=== PATIENT | female | born 1995 | race Caucasian/White ===

== ENCOUNTER 2018-10-26 02:33 | Emergency (ER) | payer OTHER ==
[~2018-10-26] VITALS: Ht 157.5 cm; Wt 55.9 kg
[2018-10-26 02:34] VITALS: BP 127/76
[2018-10-26] MEDS ORDERED: PRENTAB45 PO (02:43)
--- NOTE | 2018-10-26 06:15 | REPVR ---
EXAM: US TRANSABD PLUS DETAILED EVAL FIRST GEST EXAM DATE/TIME: 10/26/2018 4:00 AM CLINICAL HISTORY: 23 years old, female; Pain; complicated by abdominal or pelvic pain; Lower; Second trimester; Gestational age or lmp: 19w 3 d; ; Additional info: Lower abdominal pain TECHNIQUE: Real-time transabdominal obstetrical ultrasound of the maternal pelvis and a first trimester with image documentation. COMPARISON: No relevant prior studies available. FINDINGS: Other findings: GESTATION: Gestation: Single live intrauterine in vertex presentation corresponding with 19 weeks 3 days with CASPER of 03/19/19, concordant with LMP. weight is 284 g, (10 ounces); 46%. Heart rate: heart rate is 157 beats per minute. Presentation: Vertex. Placenta: Placenta is posterior, grade 0. No evidence of abruption or previa. Amniotic fluid: Amniotic fluid appears normal. Head, face, and neck: Suboptimal visualization of the cerebellum/posterior fossa, 4 chamber heart and bilateral ventricular outlet. Heart: See above. Abdomen: Cranium, right axis, gave him, face profile, lungs, diaphragm, stomach, cord insertion, 3 vessel cord, kidneys, bladder, spine, bilateral extremities, are seen and appears to be normal. Umbilical cord and insertion: Normal. Spine: Unremarkable as visualized. Extremities: Unremarkable as visualized Gender: Not determined. BIOMETRY: Biparietal diameter: BPD is 4.6 cm. Head circumference: Head circumference is 16.8 cm. Femur length; 3.1 cm. Abdominal circumference: Abdominal circumference is 13.6 cm. MATERNAL: Uterus: Unremarkable. Cervix: Cervical length is 3.4 cm. IMPRESSION: Single live intrauterine in vertex presentation corresponding with 19 weeks 3 days with CASPER of 03/19/19, concordant with LMP. No acute finding. Electronically signed by: Eve Jacobs On 10/26/2018 06:15:15 AM
== END 2018-10-26 05:13 | disposition home or self-care (01) ==
LOC: M ED 02:33
DX: O26.892 Other specified pregnancy related conditions, second trimester (principal); R10.9 Unspecified abdominal pain; Z88.0 Allergy status to penicillin; Z3A.19 19 weeks gestation of pregnancy

== ENCOUNTER 2019-03-27 09:26 | Inpatient (IN) | payer OTHER ==
[~2019-03-27] VITALS: Ht 160 cm; Wt 71.9 kg
[2019-03-27] VITALS (25 sets, daily range): BP systolic 119–156; BP diastolic 66–88
[~2019-03-27 09:26] MED LIST: PRENTAB45 PO
[2019-03-27] MEDS ORDERED: LACTATED RINGER'S 1000 ML IV STA (10:46)
[2019-03-27] MEDS ORDERED: OXYTOCIN 30 UNITS IN 0.9% NaCl 500ML IV BAG (J2590) As Ordered ONE (11:04)
[2019-03-27 11:05] LABS: HEMATOCRIT 28.1 % (36.0-47.0); HEMOGLOBIN 9.2 g/dl (12.0-15.5); MEAN CORPUSCULAR HEMOGLOBIN 27.8 pg (27.0-33.0); MEAN CORPUSCULAR HGB CONC 32.7 g/dl (32.0-36.5); MEAN CORPUSCULAR VOLUME 84.9 fl (80.0-96.0); PLATELET COUNT, AUTOMATED 227 10^3/uL (150-450); RED BLOOD COUNT 3.31 10^6/uL (4.00-5.40); WHITE BLOOD COUNT 8.3 10^3/uL (4.0-10.0)
[2019-03-27] MEDS ORDERED: OXYTOCIN DRIP 30 UNITS in APPROPRIATE DILUENT 1 EA IV SCH (11:15)
[2019-03-27] MEDS: LR 1,000 ML IV SCH ×2 (11:18→18:46)
--- NOTE | 2019-03-27 11:19 | HPEPDOC ---
Obstetrical History & Physical General Date of Admission Mar 27, 2019 at 09:26 History of Present Illness Isabel is a 24yo with SIUP at 41w0d by lmp c/w 9wk u/s who presents today for scheduled IOL for LTG. She feels well. No LOF or vaginal bleeding. Feels good movement. Feels occasional ctx, nothing painful or progressive. Chief Complaint: Induction of labor Care Care: Good Care Dating Final EDC: March 20, 2019 Final EDC by: LMP, 1st trimester (US) Antepartum Course Diagnos(e)s Normal course Height (inches): 62 Pre- weight (lbs.): 125 Admission Weight (lbs.): 161 Change in Weight (lbs.): 36 Past Medical History Past Obstetrical History : Past Obstetrical History: Primgravida (1 early sab) SLIP DUMPER History: No pertinent history Past Medical History Medical History Benign PMhx Surgical History: [place] teeth Family History Significant Family History: No pertinent family hx Social History Marital Status: Family situation: Spouse/partner home Psychosocial History: No pertinent psych hx * Smoker: former Smoker (smoked 2-3 cig/day for 1 year prior to ) Alcohol: Denies Imunizations Tdap status: current Influenza Status: current Allergies Coded Allergies: Penicillins (Verified Adverse Reaction, Mild, N/V, 03/27/19) Medications Scheduled Vit No.129/Iron/Folic ( One Daily Tablet) 1 Tab Tab, 1 TAB PO DAILY Physical Examination Physical Examination GENERAL: Alert and oriented times three. ABDOMEN: Gravid and non-tender to touch. FETUS: Is vertex (VTX) by sterile vaginal examination (SVE) and TAUS EXTREMITIES: No edema Laboratory Data 24H LABS Laboratory Tests 2 03/27/19 09:36: Serology Scanned Report Hepatitis B Testing 03/27/19 10:10: CBC/BMP Pertinent Laboratoy Data Blood Type: O+ RBC Antibody Screen: Negative HIV: Negative Hepatitis B: Negative Hepatitis C: Unknown Rapid Plasma Reagin: Nonreactive Rubella: Immune Chlamydia/Gonorrhea: Negative Group B Streptococcus: Negative Quad Screen Test: Negative Cystic Fibrosis: Negative Glucose Tolerance Test: 100 Anatomy Ultrasound Ultrasound Date: Nov 07, 2018 Placenta Location: Posterior Normal Anatomy: Yes Placenta Previa: No Steroid Therapy Steroid Therapy: No Vaginal Examination Dilation: 1cm Effacement: 60% Station: -2 Cervical Consistency: Soft Cervical Position: Anterior Presentation: Cephalic presentation Assessment Heart Rate (FHR): 140 Variability: Moderate Accelerations: Positive Decelerations: None Tocometer Contractions: Yes Frequency: irregular Duration: greater than 60 seconds Strength: palpated as mild Assessment/Plan Assessment Isabel is a 24yo with SIUP at 41w0d by lmp c/w 9wk u/s who presents today for scheduled IOL for LTG. GBS negative. Cephalic by TAUS and SCE. SCE 60/-2, soft/anterior. Cat I FHRT with irregular ctx that patient does not feel. Vitals wnl, exam benign. Cervical webb bulb placed with 40cc NS without issue. PMhx uncomplicated, benign course. Former smoker- smoked 2-3cig/day for 1 year and quit w/discovery of Plan Admit and orient. [facility] Machine Tender and consent. Diet: regular for lunch then clear liquids Group B Streptococcus (GBS) negative Labs and intravenous (IV) per unit protocol. Counseled on webb bulb, Pitocin and induction of labor (IOL). Plan to start pitocin, titrate up to 6mu and continue until webb bulb falls out, then titrate up per protocol. Lactated Ringers (LR): Bolus 1000 mL, then at 125 mL/hr. Anticipate normal spontaneous delivery () Candidate for epidural in active labor if desired, IV stadol in latent labor if desired MD Adrian Sanabria Katrina D MD Mar 27, 2019 11:19
[2019-03-27] MEDS ORDERED: BUTORPHANOL 2 MG/ML INJ (J0595) IV ONE (11:30)
[2019-03-27] MEDS ORDERED: PROMETHAZINE INJ 25 MG/ML VIAL (J2550) IV ONE (11:30)
[2019-03-27] MEDS ORDERED: ONDANSETRON 4MG/2ML VIAL (J2405) IV ONE (16:30)
--- NOTE | 2019-03-27 20:15 | IPNPDOC ---
Text Note Date of Service The patient was seen on 03/27/19. NOTE I'm assuming care of Ms. Washington this evening and I introduced myself to her. S he's a 24 yo at 41+0 weeks undergoing and IOL for late term . Her has been uncomplicated, however her admission H/H was 07/19. Her induction process was started with a webb bulb and low dose pitocin. Her webb bulb came out a couple hours ago and she has continued on pitocin since. She just received 2gm of IV stadol for pain relief. Ms. Washington reports feeling much more comfortable after IV analgesia. She denies any other concerns. Cervix: 4/75/-2 per RN exam at ~1940. FHR: Cat I with moderate variability (though periods of minimal after IV stadol), +accels, no decels. Contractions Q2-6 minutes. Patient doing well. Continue with pitocin and titrate as needed into appropriate contraction pattern. Epidural when patient desires. Will recheck in ~6hours or sooner PRN. Will consider AROM at next exam if head well engaged. All patient questions answered. Mel Mandel DO VS,[place], I+O VS, [place], I+O Laboratory Tests 03/27/19 10:10 Red Blood Count 3.31 L, Mean Corpuscular Volume 84.9, Mean Corpuscular Hemoglobin 27.8, Mean Corpuscular Hemoglobin Concent 32.7, Red Cell Distribution Width 12.5 Vital Signs Date Time Temp Pulse Resp B/P (MAP) Pulse Ox O2 Delivery O2 Flow Rate FiO2 03/27/19 19:41 20 03/27/19 15:52 89 156/82 (106) 03/27/19 13:22 98.4 MEL MANDEL DO Mar 27, 2019 20:15
[2019-03-27] MEDS ORDERED: FENTANYL 2MCG/ML ROPIVACAINE 0.2% IN 0.9% NACL 100ML IVBAG As Ordered ONE (22:41)
[2019-03-28] VITALS (50 sets, daily range): BP systolic 108–148; BP diastolic 56–97
[2019-03-28] MEDS ORDERED: EPIDURAL/PCA KEYS XX PRN (00:45)
[2019-03-28] MEDS ORDERED: diphenhydrAMINE INJ 50MG/ML VIAL (J1200) IV PRN ×2 (00:45→15:36)
[2019-03-28] MEDS ORDERED: NALOXONE INJ 0.4 MG/1 ML VIAL (J2310) IV PRN ×3 (00:45→15:36)
[2019-03-28] MEDS ORDERED: FENTANYL/ROPIVACAINE/NACL BAG 100 ML EPIDURAL SCH (00:45)
[2019-03-28] MEDS ORDERED: EPIDURAL COMMENT XX SCH (00:45)
[2019-03-28] MEDS ORDERED: ONDANSETRON 4MG/2ML VIAL (J2405) IV PRN ×3 (00:45→16:45)
[2019-03-28] MEDS ORDERED: REFRIGERATOR IV KEYS XX PRN (00:45)
[2019-03-28] MEDS ORDERED: ePHEDrine SULFATE 25 MG/5 ML(5MG/ML) SYRINGE IV PRN (00:45)
--- NOTE | 2019-03-28 02:06 | IPNPDOC ---
Text Note Date of Service The patient was seen on 03/28/19. NOTE Ms. Washington had worsening pain and desired an epidural. She received it and is now comfortable. Cervix: /-2, unchanged from RN exam at ~1940. Head not engaged. FHR Cat I with moderate variability, +accels. No change from last exam, and cervix is not a laboring cervix. Contractions not in optimal pattern. Plan to continue with pitocin. When head engages and she transitions into actual labor will perform AROM. Safe to proceed. DO Ministerio [facility],[place], I+O VS, [place], I+O Laboratory Tests 03/27/19 10:10 Red Blood Count 3.31 L, Mean Corpuscular Volume 84.9, Mean Corpuscular Hemoglobin 27.8, Mean Corpuscular Hemoglobin Concent 32.7, Red Cell Distribution Width 12.5 Vital Signs Date Time Temp Pulse Resp B/P (MAP) Pulse Ox O2 Delivery O2 Flow Rate FiO2 03/28/19 00:34 86 131/75 (93) 03/28/19 00:08 99.2 03/27/19 19:52 20 I&O- Last 24 Hours up to 6 AM 03/28/19 06:00 Intake Total 2268 ml Output Total 850 ml Balance 1418 ml MEL MENDIOLA DO Mar 28, 2019 02:06
--- NOTE | 2019-03-28 06:44 | IPNPDOC ---
Text Note Date of Service The patient was seen on 03/28/19. NOTE Presented to room for assessment of progress. Patient continues to be comfor table. Cervix: 580/-1. AROM performed productive of a large amount of clear fluid. FHR remains Cat I. Patient just had a temperature of 101, a repeat oral temperature of 101.1 was confirmed 15 minutes later. There is no maternal or tachycardia or any other findings suggestive of intraamniotic infection. Will give tylenol now. Repeat temperature in one hour. Will obtain CBC now to check WBC count. If temperature and WBC count elevated, would consider initiation of antibiotics for presumed intraamniotic infection. All patient questions answered. Mel Mandel DO [place], I+O VS, [place], I+O Laboratory Tests 03/27/19 10:10 Red Blood Count 3.31 L, Mean Corpuscular Volume 84.9, Mean Corpuscular Hemoglobin 27.8, Mean Corpuscular Hemoglobin Concent 32.7, Red Cell Distribution Width 12.5 Vital Signs Date Time Temp Pulse Resp B/P (MAP) Pulse Ox O2 Delivery O2 Flow Rate FiO2 03/28/19 05:43 88 125/64 (84) 03/28/19 05:17 99.8 16 I&O- Last 24 Hours up to 6 AM 03/28/19 06:00 Intake Total 2268 ml Output Total 850 ml Balance 1418 ml MEL MANDEL DO Mar 28, 2019 06:44
[2019-03-28] MEDS ORDERED: ACETAMINOPHEN 325 MG TAB PO ONE (06:45)
[2019-03-28 07:06] LABS: HEMATOCRIT 27.7 % (36.0-47.0); HEMOGLOBIN 9.1 g/dl (12.0-15.5); MEAN CORPUSCULAR HEMOGLOBIN 27.6 pg (27.0-33.0); MEAN CORPUSCULAR HGB CONC 32.9 g/dl (32.0-36.5); MEAN CORPUSCULAR VOLUME 83.9 fl (80.0-96.0); PLATELET COUNT, AUTOMATED 180 10^3/uL (150-450); WHITE BLOOD COUNT 13.6 10^3/uL (4.0-10.0)
[2019-03-28] MEDS: LR 1,000 ML IV SCH ×2 (07:35→10:46)
[2019-03-28] MEDS ORDERED: ACETAMINOPHEN 500 MG TAB PO ONE (12:30)
--- NOTE | 2019-03-28 12:36 | NUR ---
1230 am reassessment post dates iol intermittent fever low grade , cervix 5 cm fully swollen moulding and increase heat in vagina, Plan to stop Pitocin hydrate reevaluate in 2 hours category 1 strip . Safe to proceed
[2019-03-28] MEDS ORDERED: ceFAZolin 2 GM/D5W 50 ML IV BAG (J0690 PER 500MG) As Ordered ONE (14:41)
[2019-03-28] MEDS ORDERED: BICITRA 30ML SOLN UDC PO ONE (14:45)
[2019-03-28] MEDS ORDERED: AZITHROMYCIN INJ 500 MG, VIAL MATE ADAPTER 1 EACH in D5W 250 ML IV ONE (14:45)
[2019-03-28] MEDS ORDERED: ACETAMINOPHEN 650 MG SUPP PR ONE (14:45)
[2019-03-28] MEDS ORDERED: BUPIVACAINE HCL 0.25% 10 ML VIAL SC ONE (14:45)
[2019-03-28] MEDS ORDERED: MORPHINE PRES-FREE INJ 10 MG/10 ML VIAL (J2274) As Ordered ONE (14:49)
[2019-03-28] MEDS ORDERED: OXYTOCIN INJ 10 UNITS/ML VIAL (J2590) As Ordered ONE (14:49)
[2019-03-28] MEDS ORDERED: LIDOCAINE 2% W/EPIN INJ 20ML **PRES FREE As Ordered ONE (14:49)
[2019-03-28] MEDS ORDERED: ONDANSETRON 4MG/2ML VIAL (J2405) As Ordered ONE (15:34)
[2019-03-28] MEDS ORDERED: dexameTHASONE 4 MG/ML 1ML VIAL (J1100) As Ordered ONE (15:34)
[2019-03-28] MEDS ORDERED: NALBUPHINE HCL 10 MG/ML AMP (J2300) IV PRN ×2 (15:36→16:45)
[2019-03-28] MEDS ORDERED: METOCLOPRAMIDE INJ 10MG/2ML VIAL (J2765) IV PRN (15:36)
[2019-03-28] MEDS ORDERED: KETOROLAC 60 MG/2 ML VIAL (J1885) As Ordered ONE (15:44)
[2019-03-28 15:50] LABS: CORD GAS ABE V -4.6; CORD GAS O2 SAT V 85.1 %; CORD GAS PCO2 V 31.4 mmHg; CORD GAS PH V 7.399 UNITS; CORD GAS PO2 V 41.6 mmHg; CORD GAS SBC V 20.4 MEQ/L; CORD GAS TCO2 V 19.9 MEQ/L
[2019-03-28] MEDS ORDERED: fentaNYL 100 MCG/2 ML INJECTION (J3010) As Ordered ONE (15:52)
[2019-03-28] MEDS ORDERED: LIDOCAINE 2% INJ 100 MG/5 ML SDV (FOR ANES.) As Ordered ONE (16:06)
[2019-03-28] MEDS ORDERED: ANUSOL HC CREAM 30GM TOP PRN (16:30)
[2019-03-28] MEDS ORDERED: MOM 30ML SUSPENSION UDC PO PRN (16:30)
[2019-03-28] MEDS ORDERED: DOCUSATE SODIUM 100 MG CAP PO PRN (16:30)
[2019-03-28] MEDS ORDERED: RHOGAM 300 MCG (1500 IU) INJ (J2790) IM SCH (16:30)
[2019-03-28] MEDS ORDERED: METHYLERGONOVINE MALEATE 0.2 MG TAB PO PRN (16:30)
[2019-03-28] MEDS ORDERED: PERCOCET 5MG/325MG TAB PO PRN (16:30)
[2019-03-28] MEDS ORDERED: MEASLES,MUMPS,RUBELLA VACCINE INJ (MMR-II) (90707) SC SCH (16:30)
[2019-03-28] MEDS ORDERED: OXYTOCIN DRIP 30 UNITS in APPROPRIATE DILUENT 1 EA IV SCH (16:40)
[2019-03-28] MEDS ORDERED: miSOPROStol 200 MCG TAB (S0191) PR ONE (16:45)
[2019-03-28] MEDS ORDERED: OXYTOCIN INJ 10 UNITS/ML VIAL (J2590) IV ONE (16:45)
[2019-03-28] MEDS ORDERED: fentaNYL 100 MCG/2 ML INJECTION (J3010) IV PRN (16:45)
[2019-03-28] MEDS ORDERED: LR 1,000 ML IV SCH (16:45)
[2019-03-28] MEDS ORDERED: CLINDAMYCIN 900 MG in APPROPRIATE DILUENT 1 EA IV SCH (17:00)
[2019-03-28] MEDS ORDERED: OXYTOCIN 30 UNITS IN 0.9% NaCl 500ML IV BAG (J2590) As Ordered ONE (17:18)
--- NOTE | 2019-03-28 17:21 | IPN ---
DATE: 03/28/2019 This lady is a 1 at 41 weeks, was induced in labor, eventually got to 5 cm with a very tight cervix and very swollen cervix all the way around with molding. She had an earlier episode of temperature of 101, and she had a white count recheck which was 17, and otherwise was normal. Two hours later she had another elevated temperature, 102.9, with some tachycardia and failure to descend or progress beyond the 5 cm despite the fact that we needed to turn the Pitocin off in order to allow adequate rest between contractions. After a 2-hour delay, there was no change in the cervix, and there was still evidence of the temperature, it was elected to discontinue the induction of labor and do a planned section. After discussing the risks of section with the patient, hemorrhage, infection, perforation, , reoperation, remote possibility of blood transfusion, the remote possibility of hysterectomy, remote possibility of baby entering the intensive care unit (NICU) or laceration, patient and agreed that this was the best course and plan of action. The patient will be given prophylactic antibiotics and neonatology was notified and family assistant was called. In conclusion, we have a primary section with postdates gestation, tachycardia, maternal fever, failure to descend.
[2019-03-28] MEDS ORDERED: GENTAMICIN 80 MG in APPROPRIATE DILUENT 1 EA IV SCH (18:00)
[2019-03-28] MEDS: CLINDAMYCIN 900 MG in APPROPRIATE DILUENT 1 EA IV SCH (20:23)
[2019-03-28] MEDS: KETOROLAC 30 MG/ML VIAL (J1885) IV SCH (21:22)
[2019-03-28] MEDS: GENTAMICIN 80 MG in APPROPRIATE DILUENT 1 EA IV SCH (21:22)
[2019-03-29 02:00] VITALS: BP 142/84
[2019-03-29] MEDS: CLINDAMYCIN 900 MG in APPROPRIATE DILUENT 1 EA IV SCH ×3 (03:40→19:49)
[2019-03-29] MEDS: KETOROLAC 30 MG/ML VIAL (J1885) IV SCH ×2 (03:53→11:25)
[2019-03-29] MEDS: GENTAMICIN 80 MG in APPROPRIATE DILUENT 1 EA IV SCH ×3 (04:46→21:05)
[2019-03-29 05:56] VITALS: BP 120/75
[2019-03-29] MEDS: PRENATAL VITAMINS CHEWABLE TABLET PO SCH (08:29)
[2019-03-29 08:30] LABS: HEMATOCRIT 24.1 % (36.0-47.0); HEMOGLOBIN 7.9 g/dl (12.0-15.5); MEAN CORPUSCULAR HEMOGLOBIN 27.9 pg (27.0-33.0); MEAN CORPUSCULAR HGB CONC 32.8 g/dl (32.0-36.5); MEAN CORPUSCULAR VOLUME 85.2 fl (80.0-96.0); PLATELET COUNT, AUTOMATED 187 10^3/uL (150-450); RED BLOOD COUNT 2.83 10^6/uL (4.00-5.40); WHITE BLOOD COUNT 20.5 10^3/uL (4.0-10.0)
[2019-03-29 10:00] VITALS: BP 122/66
--- NOTE | 2019-03-29 11:27 | IPN ---
DATE: 03/29/2019 This lady is a 1 now para 1, who was admitted at 41 weeks of gestation for induction of labor. She had a primary section for intra-amniotic fluid infection, failure to dilate and failure to descend. Delivered a live male infant 8 pounds 13 ounces, 4010 grams, of 8 and 9 at one and five minutes respectively. Venous base pH 7.39, base excess -4.6. Baby is presently in the intensive care unit (NICU) under observation because of the intra-amniotic infection. Presently the blood pressure on the patient is 120/75, respirations 16, pulse 80 and temperature 98.1. Patient is on antibiotic therapy because of intra-amniotic infection. It has not elevated temperature. Uterus is well contracted. Both under Pitocin and under Cytotec. Her admitting hemoglobin was 9.2, hematocrit 28.1 and platelets are 227. Her hemoglobin reflects 8 hours later, it was 9.1, hematocrit 27.7, platelets are 180. On examination today she is normocephalic, atraumatic. Neck: Full range of motion. Pupils equal and reactive to light. Distal pulses symmetric. No evidence of deep venous thrombosis (DVT), pulmonary embolus (PE) or superficial phlebitis. Chest is clear bilaterally bases. No wheeze or rale or rhonchi. Abdomen: Soft. Uterus two below. Lochia is moderate. Four quadrant bowel sounds are noted. Incision is clean and dry. She has not started to diurese as yet. Her total urine output was 700. Her intake IV was 1256. She is presently on clindamycin, gentamicin as well. The urine that she just voided was 100 mL and there was a residual of 77 in the bladder. She does present with some swelling in her lower ankles and feet. However, we are anticipating diuresis in the next few hours. She is using her incentive spirometry otherwise is well. Our plan of management is to discontinue the antibiotic therapy within 24 hours if she is afebrile. Mobilize the patient and continue conservative management.
[2019-03-29 14:00] VITALS: BP 117/58
[2019-03-29 17:43] VITALS: BP 122/60
[2019-03-29] MEDS: IBUPROFEN 800 MG TAB PO SCH (18:16)
[2019-03-29] MEDS: PERCOCET 5MG/325MG TAB PO PRN (21:42)
[2019-03-29 22:08] VITALS: BP 131/60
[2019-03-30 01:35] VITALS: BP 122/61
[2019-03-30] MEDS: IBUPROFEN 800 MG TAB PO SCH ×3 (01:36→18:24)
[2019-03-30 06:01] VITALS: BP 131/60
--- NOTE | 2019-03-30 07:46 | IPNPDOC ---
Text Note Date of Service The patient was seen on 03/30/19. NOTE POD1 PLTCS States feeling well, pain controlled with prescribed meds. Baby bonding and feeding well in the NICU. No heavy VB. Lochia slowing. Ambulatory. Tolerating PO without issues. Voiding, UO adequate. VSSAF NAD A&O RRR CTAB LE no C/C/E Ut at U-2, firm Inc CDI a/p: Doing well. Cont routine postop care. D/C tomorrow likely. Sessions [place] ORTIZ, I+O [place] ZAPATA I+O Laboratory Tests 03/29/19 08:04 Red Blood Count 2.83 L, Mean Corpuscular Volume 85.2, Mean Corpuscular Hemoglobin 27.9, Mean Corpuscular Hemoglobin Concent 32.8, Red Cell Distribution Width 12.9 Vital Signs Date Time Temp Pulse Resp B/P (MAP) Pulse Ox O2 Delivery O2 Flow Rate FiO2 03/30/19 06:01 97.4 78 18 131/60 (83) 03/29/19 17:43 99 I&O- Last 24 Hours up to 6 AM 03/30/19 06:00 Intake Total 150 ml Output Total 1200 ml Balance -1050 ml SESSIONS,LADARIUS Hsu MD Mar 30, 2019 07:46
[2019-03-30] MEDS: PRENATAL VITAMINS CHEWABLE TABLET PO SCH (09:44)
--- NOTE | 2019-03-30 10:38 | RO ---
DATE OF PROCEDURE: PREOPERATIVE DIAGNOSES: Intra-amniotic infection, failure to descend, failure to dilate, right occiput transverse (ROT) late post term . POSTOPERATIVE DIAGNOSES: Intra-amniotic infection, failure to descend, failure to dilate, right occiput transverse (ROT) late post term . Interim amniotic infection (IAI). PROCEDURE PERFORMED: section. SURGEON: Dr. Kishor Aquino. SECRETARY RECEPTIONIST: Caity Simon CNM for extraction, retraction and visualization. ANESTHESIA: Epidural plus local anesthetic for intraperitoneal procedures. ESTIMATED BLOOD LOSS: 300 mL DESCRIPTION OF PROCEDURE: After adequate time-out, prepped and draped in the supine position, Duran catheter in the bladder draining clear urine. Acetaminophen suppository 1300 mg per rectum placed after the surgery and Cytotec 1000 mg per rectum placed after the surgery for uterine contraction. Sequentials on the patient and appropriate antibiotic therapy. A Pfannenstiel incision was made two fingerbreadths above symphysis pubis passing through abdominal layers securing hemostasis. Opening peritoneal cavity. The bladder was reflected well anteriorly. Thin lower uterine segment, low transverse incision into the uterus. Foul Liqua was noted very odorous. We delivered a live male infant, which also had an odor to him from chorio. Male weighing 4010 grams, 8 pounds 13 ounces, of 8 and 9 at one and five minutes respectively. Venous pH 7.39, base excess -4.6. Placenta was manually removed. Again it had a very bad odor to it. Cultures from the placenta were taken and sent off to microbiology. The uterus was swept out. No membranes and tissues were left. The uterus contracted well down under Pitocin 5 mg IV push and then a bag of 20 mg in 500. The lower segment was oversewn usual fashion in two layers and reperitonealization was performed. With instrument pad count correct both tubes, ovaries appeared to be normal. We removed all of clots. We compressed the uterus. No active bleeding from the incision site and the abdomen is closed running stitch for the perineum, same for the fascia. Then irrigation of the subcutaneous, couple of interrupted subcutaneous and Dexon to the skin. Marcaine 0.25% without 10 mL subcutaneously, a spray and Telfa were applied. We then went ahead, after that was done, put in the Cytotec 1000 mg and the Tylenol 1300 mg per rectum. The patient will be started on prophylactic antibiotics for chorioamnionitis in the form of gentamicin, clindamycin until she is 24 hours afebrile. The patient left the surgical suite in good condition. Baby was taken to the intensive care unit.
[2019-03-30 18:00] VITALS: BP 142/69
[2019-03-30 22:00] VITALS: BP 138/73
[2019-03-30] MEDS: PERCOCET 5MG/325MG TAB PO PRN ×2 (22:02→23:16)
[2019-03-31 02:00] VITALS: BP 140/76
[2019-03-31] MEDS: IBUPROFEN 800 MG TAB PO SCH ×2 (02:50→09:47)
[2019-03-31 05:50] VITALS: BP 144/84
--- NOTE | 2019-03-31 07:06 | DS.PDOC ---
Discharge Summary General Date of Admission Mar 27, 2019 at 09:26 Date of Discharge [id number] Discharge Summary ADMITTING DIAGNOSES: Induction of labor DISCHARGE DIAGNOSES: PLTCS for arrest disorder, also chorioamnionitis HOSPITAL COURSE: Induction/labor course prolonged and eventually arrested progress. delivery uncomplicated. Baby to NICU due to obvious intraamniotic infection. course uncomplicated. DISCHARGE MEDICATIONS: Motrin, Lanolin, Percocet, Colace DISCHARGE INSTRUCTIONS: Nothing in the vagina for 6 weeks. No driving for 2 weeks. No bathing for 4 weeks, shower only. F/U in OBGYN clinic in 1-2 weeks for incision check and routine follow-up in 6-8 weeks. Sessions Vital Signs/I&Os Vital Signs Date Time Temp Pulse Resp B/P (MAP) Pulse Ox O2 Delivery O2 Flow Rate FiO2 03/31/19 05:50 97.6 84 16 144/84 (104) 98 l I&O- Last 24 Hours up to 6 AM 03/31/19 06:00 Output Total 600 ml Balance -600 ml Microbiology Microbiology 03/28/19 Wound Culture - Final, Complete Streptococcus Group C Discharge Medications Scheduled Vit No.129/Iron/Folic ( One Daily Tablet) 1 Tab Tab, 1 TAB PO DAILY, (Reported) Allergies Coded Allergies: Penicillins (Verified Adverse Reaction, Mild, N/V, 03/27/19) SESSIONS,LADARIUS Hsu MD Mar 31, 2019 07:06
[2019-03-31] MEDS ORDERED: IBUP80TA PO (07:08)
[2019-03-31] MEDS ORDERED: COLA100C5 PO (07:08)
[2019-03-31] MEDS ORDERED: PERCOCET PO (07:08)
--- NOTE | 2019-03-31 07:11 | IPNPDOC ---
Text Note Date of Service The patient was seen on 03/31/19. NOTE POD2 PLTCS States feeling well, pain controlled with prescribed meds. Baby bonding and feeding well in the NICU. No heavy VB. Lochia slowing. Ambulatory. Tolerating PO without issues. Voiding, UO adequate. VSSAF NAD A&O RRR CTAB LE no C/C/E Ut at U-2, [employer] CDI a/p: Doing well. Cont routine postop care. D/C today. Boarding mom if baby not d/c'd. Sessions [place], I+O [place], I+O Vital Signs Date Time Temp Pulse Resp B/P (MAP) Pulse Ox O2 Delivery O2 Flow Rate FiO2 03/31/19 05:50 97.6 84 16 144/84 (104) 98 I&O- Last 24 Hours up to 6 AM 03/31/19 05:59 Output Total 600 ml Balance -600 ml SESSIONS,LADARIUS Hsu MD Mar 31, 2019 07:11
[2019-03-31] MEDS: PRENATAL VITAMINS CHEWABLE TABLET PO SCH (09:46)
== END 2019-03-31 10:30 | disposition home or self-care (01) | DRG 771 ==
LOC: M LDI 09:26 → M OBS 03-28 18:15
PROVIDERS: ADMIT Obstetrics & Gynecology; ATTEND Obstetrics & Gynecology
PROC: 3E033VJ Introduction of Other Hormone into Peripheral Vein, Percutaneous Approach (ICD-10-PCS; 2019-03-27)
PROC: 10D00Z1 Extraction of Products of Conception, Low, Open Approach (ICD-10-PCS; principal; 2019-03-28 15:00)
DX: O48.0 Post-term pregnancy (principal); O41.1230 Chorioamnionitis, third trimester, not applicable or unspecified; Z37.0 Single live birth; Z3A.41 41 weeks gestation of pregnancy; Z88.0 Allergy status to penicillin; O32.4XX0 Maternal care for high head at term, not applicable or unspecified; O62.0 Primary inadequate contractions